=== PATIENT | male | born 1955 | race Caucasian/White ===

== ENCOUNTER 2016-06-12 15:54 | Observation (INO) | payer MEDICARE ==
[2016-06-12] VITALS (165 sets, daily range): BP systolic 130; BP diastolic 67–72; PULSE 86–89; TEMP 97.1–98.3; O2SAT 74–100
[~2016-06-12] VITALS: Ht 177.8 cm; Wt 101.1 kg
[~2016-06-12 15:54] MED LIST: AMOXICILLIN 8751 TAB PO; ASPIRIN E.C. 8181 MG PO; CLEOCIN HCL300 MG PO; COGENTIN 1MG1 MG/TAB PO; COREG 3.123.125 MG/T PO; DEBROX OT; DILANTIN 100MG100 MG PO; DILANTIN KAPSEA30 MG PO; FLOMAX 0.40.4 MG/CAP PO; HALDOL 1MG T1 MG/TAB PO; HALDOL 2MG T2 MG/TAB PO; KENALOG-1010 MG/ML TP; LAMICTAL 100MG100 MG PO; LAMICTAL 25MG T25 MG PO; LAMICTAL200 MG PO; LANOXIN 0.120.125 MG PO; LANOXIN 0.25M0.25 MG PO; LASIX 20MG TABL20 MG PO; LIPITOR20 MG PO; LOTRIMIN1% TP; MULTI VITAMINS1 TAB PO; PHENOBARBITAL100 M1 PO; PHENOBARBITAL32.4 MG PO; PLAVIX 75MG TAB75 MG PO; PROAIR HFA0.09 MG/AC IH; TRIAMCINOLONE A15 GM TP; TYLENOL 325MG325 MG PO; TYLENOL W/COD1 UDTAB PO; ZESTRIL 10MG10 MG PO; ZESTRIL2.5 MG PO; ZOLOFT 100MG100 MG PO; ZYPREXA ZYD10 MG/TAB PO; ZYPREXA10 MG PO
[2016-06-12 16:12] LABS: HEMATOCRIT 43.5 % (42.0-52.0); HEMOGLOBIN 14.8 g/dl (13.5-18.0); MEAN CELL VOLUME 91 fl (80.0-100.0); MEAN CORPUSCULAR HEMOGLOBIN 31 pg (27.0-31.0); MEAN CORPUSCULAR HGB CONC 34 g/dl (33.0-37.0); MEAN PLATELET VOLUME 9.4 fl (7.4-10.4); PLATELET COUNT 357 K/mm3 (130-400); RED BLOOD COUNT 4.78 M/mm3 (4.20-5.60); REDCELL DISTRIBUTION WIDTH-CV 13.9 % (11.5-14.5); WHITE BLOOD COUNT 19.3 K/mm3 (4.8-10.8)
[2016-06-12 16:21] LABS: ADD PATHOLOGY DIFF REVIEW NO
[2016-06-12 16:27] LABS: ADJUSTED CALCIUM 9.4 mg/dL (8.4-10.2); ALBUMIN 4.9 gm/dL (3.5-5.0); BILIRUBIN,TOTAL 0.5 mg/dL (0.0-1.0); CALCIUM 10.1 mg/dL (8.4-10.2); CREATININE, serum 0.72 mg/dL (0.66-1.25); POTASSIUM 3.5 mmol/L (3.4-5.0); TOTAL PROTEIN 7.6 gm/dL (6.4-8.2)
[2016-06-12 16:43] LABS: PROLACTIN 106.5 ng/mL (3.7-17.9)
[2016-06-12] MEDS ORDERED: COGENTIN 1MG1 MG/TAB PO (17:18)
[2016-06-12] MEDS ORDERED: PLAVIX 75MG TAB75 MG PO (17:21)
[2016-06-12] MEDS ORDERED: LIPITOR20 MG PO (17:21)
[2016-06-12] MEDS ORDERED: COREG 3.123.125 MG/T PO (17:21)
[2016-06-12] MEDS ORDERED: AMOXICILLIN 8751 TAB PO (17:21)
[2016-06-12] MEDS ORDERED: ZESTRIL2.5 MG PO (17:22)
[2016-06-12] MEDS ORDERED: LAMICTAL 25MG T25 MG PO (17:22)
[2016-06-12] MEDS ORDERED: DILANTIN 100MG100 MG PO (17:22)
[2016-06-12] MEDS ORDERED: DILANTIN KAPSEA30 MG PO (17:32)
[2016-06-12 18:40] LABS: BAND 5 % (0-10); NEUTROPHILS 81 % (42.0-75.2); TOTAL CELLS COUNTED 100
[2016-06-12] MEDS ORDERED: LASIX 20MG TABL20 MG PO (19:35)
[2016-06-12 21:27] LABS: PH 7 (5-8); URINE APPEARANCE Clear; URINE BILIRUBIN Negative (NEGATIVE); URINE BLOOD Negative (NEGATIVE); URINE COLOR Yellow; URINE GLUCOSE Negative (NEGATIVE); URINE KETONE Negative (NEGATIVE); URINE UROBILINOGEN Negative (NEGATIVE)
[2016-06-13] VITALS (369 sets, daily range): BP systolic 102–107; BP diastolic 59–72; PULSE 76–81; TEMP 98.2–99.2; O2SAT 77–96
[2016-06-13 05:59] LABS: BASO # 0.1 (0.0-0.2); BASO % 0.8 % (0.0-2.0); EOS # 0.1 (0.0-0.7); EOS % 0.4 % (0-4.0); GRAN # 9.3 (1.4-6.5); GRAN % 77.2 % (42.2-75.2); HEMATOCRIT 39.7 % (42.0-52.0); HEMOGLOBIN 13.6 g/dl (13.5-18.0); LYMPH # 1.6 (1.2-3.4); LYMPH % 13.4 % (20.0-51.0); MEAN CELL VOLUME 90 fl (80.0-100.0); MEAN CORPUSCULAR HEMOGLOBIN 31 pg (27.0-31.0); MEAN CORPUSCULAR HGB CONC 34 g/dl (33.0-37.0); MEAN PLATELET VOLUME 9.6 fl (7.4-10.4); MONO # 0.9 (0.1-0.6); MONO % 7.4 % (1.7-9.3); PLATELET COUNT 286 K/mm3 (130-400); REDCELL DISTRIBUTION WIDTH-CV 14.3 % (11.5-14.5)
[2016-06-13 06:22] LABS: MAGNESIUM 1.9 mg/dL (1.6-2.3)
== END 2016-06-13 10:30 | disposition home or self-care (01) ==
LOC: COL.ER 15:54 → ICU 17:43
PROVIDERS: Emergency Medicine; Nurse Practitioner Family; Psychiatry & Neurology Neurology
DX: R56.9 Unspecified convulsions (principal); I10 Essential (primary) hypertension; I42.9 Cardiomyopathy, unspecified; F70 Mild intellectual disabilities
CPT/HCPCS: G0378; J2060; J7030; Q2009; Q9967

== ENCOUNTER 2016-06-14 17:53 | Emergency (ER) | payer MEDICARE ==
[~2016-06-14] VITALS: Ht 177.8 cm; Wt 90.9 kg
[2016-06-14 17:55] VITALS: BP 137/68
[2016-06-14 21:46] VITALS: PULSE 96
== END 2016-06-14 21:46 | disposition home or self-care (01) ==
LOC: COL.ER 17:53
DX: R42 Dizziness and giddiness (principal); M25.562 Pain in left knee; M25.561 Pain in right knee; I10 Essential (primary) hypertension; Z87.891 Personal history of nicotine dependence

== ENCOUNTER 2016-09-04 15:12 | Emergency (ER) | payer MEDICARE ==
[~2016-09-04] VITALS: Ht 182.9 cm; Wt 100.0 kg
[2016-09-04 15:13] VITALS: BP 146/84; TEMP 97.8
[2016-09-04 15:49] LABS: BASO # 0.1 (0.0-0.2); EOS % 0.2 % (0-4.0); GRAN # 9.2 (1.4-6.5); GRAN % 80.4 % (42.2-75.2); HEMATOCRIT 43.8 % (42.0-52.0); HEMOGLOBIN 15.5 g/dl (13.5-18.0); LYMPH # 1.2 (1.2-3.4); LYMPH % 10.8 % (20.0-51.0); MEAN CELL VOLUME 87 fl (80.0-100.0); MEAN CORPUSCULAR HEMOGLOBIN 31 pg (27.0-31.0); MEAN CORPUSCULAR HGB CONC 35 g/dl (33.0-37.0); MEAN PLATELET VOLUME 9.3 fl (7.4-10.4); MONO # 0.8 (0.1-0.6); MONO % 7.1 % (1.7-9.3); PLATELET COUNT 294 K/mm3 (130-400); RED BLOOD COUNT 5.02 M/mm3 (4.20-5.60); REDCELL DISTRIBUTION WIDTH-CV 12.7 % (11.5-14.5); WHITE BLOOD COUNT 11.4 K/mm3 (4.8-10.8)
[2016-09-04 16:04] LABS: ADJUSTED CALCIUM 9.8 mg/dL (8.4-10.2); ALANINE AMINOTRANSFERASE 31 U/L (21-72); ALBUMIN 4.6 gm/dL (3.5-5.0); ALKALINE PHOSPHATASE 103 U/L (50-136); ANION GAP 13 mmol/L (7-16); BILIRUBIN,TOTAL 0.6 mg/dL (0.0-1.0); BLOOD UREA NITROGEN 16 mg/dL (9-20); CALCIUM 10.3 mg/dL (8.4-10.2); CARBON DIOXIDE 30 mmol/L (22-30); CHLORIDE 98 mmol/L (98-107); CREATININE, serum 0.67 mg/dL (0.66-1.25); GLUCOSE 110 mg/dL (74-106); POTASSIUM 3.9 mmol/L (3.4-5.0); SODIUM 141 mmol/L (137-145); TOTAL PROTEIN 7.1 gm/dL (6.4-8.2)
[2016-09-04 16:20] LABS: PROLACTIN 13.2 ng/mL (3.7-17.9)
[2016-09-04 17:30] VITALS: PULSE 84
== END 2016-09-04 17:31 | disposition home or self-care (01) ==
LOC: COL.ER 15:12
PROVIDERS: Emergency Medicine
DX: G40.509 Epileptic seizures related to external causes, not intractable, without status epilepticus (principal); G40.909 Epilepsy, unspecified, not intractable, without status epilepticus; T42.0X6A Underdosing of hydantoin derivatives, initial encounter; Z91.128 Patient's intentional underdosing of medication regimen for other reason; I10 Essential (primary) hypertension
CPT/HCPCS: J2060; J7030; Q2009

== ENCOUNTER 2016-09-17 18:00 | Emergency (ER) | payer MEDICARE ==
[~2016-09-17] VITALS: Ht 177.8 cm; Wt 127.3 kg
[2016-09-17 18:11] VITALS: TEMP 98.6
[2016-09-17 19:15] LABS: BASO # 0.1 (0.0-0.2); BASO % 0.6 % (0.0-2.0); EOS % 0.1 % (0-4.0); GRAN # 10.1 (1.4-6.5); GRAN % 81.5 % (42.2-75.2); HEMATOCRIT 43.5 % (42.0-52.0); HEMOGLOBIN 15.3 g/dl (13.5-18.0); LYMPH # 1.3 (1.2-3.4); LYMPH % 10.3 % (20.0-51.0); MEAN CELL VOLUME 87 fl (80.0-100.0); MEAN CORPUSCULAR HEMOGLOBIN 31 pg (27.0-31.0); MEAN CORPUSCULAR HGB CONC 35 g/dl (33.0-37.0); MEAN PLATELET VOLUME 9.1 fl (7.4-10.4); MONO # 0.9 (0.1-0.6); PLATELET COUNT 308 K/mm3 (130-400); RED BLOOD COUNT 4.99 M/mm3 (4.20-5.60); REDCELL DISTRIBUTION WIDTH-CV 12.9 % (11.5-14.5); WHITE BLOOD COUNT 12.4 K/mm3 (4.8-10.8)
[2016-09-17] MEDS ORDERED: PRINIVIL2.5 MG PO (19:30)
[2016-09-17] MEDS ORDERED: ZOLOFT 100MG100 MG PO (19:31)
[2016-09-17] MEDS ORDERED: COREG 3.123.125 MG/T PO ×2 (19:31→19:33)
[2016-09-17] MEDS ORDERED: PLAVIX 75MG TAB75 MG PO (19:31)
[2016-09-17] MEDS ORDERED: LASIX 20MG TABL20 MG PO (19:34)
[2016-09-17] MEDS ORDERED: LIPITOR20 MG PO (19:34)
[2016-09-17] MEDS ORDERED: LAMICTAL200 MG PO ×2 (19:34→19:35)
[2016-09-17] MEDS ORDERED: DILANTIN KAPSEA30 MG PO (19:35)
[2016-09-17] MEDS ORDERED: COGENTIN 1MG1 MG/TAB PO (19:36)
[2016-09-17] MEDS ORDERED: LAMICTAL 100MG100 MG PO ×2 (19:37)
[2016-09-17] MEDS ORDERED: ASPIRIN E.C. 8181 MG PO (19:37)
[2016-09-17] MEDS ORDERED: HALDOL 2MG T2 MG/TAB PO (19:38)
[2016-09-17] MEDS ORDERED: PHENOBARBITAL32.4 MG PO ×2 (19:38)
[2016-09-17] MEDS ORDERED: FLOMAX 0.40.4 MG/CAP PO (19:39)
[2016-09-17] MEDS ORDERED: DILANTIN 100MG100 MG PO (19:39)
[2016-09-17 19:40] LABS: ADJUSTED CALCIUM 9.8 mg/dL (8.4-10.2); ALBUMIN 4.7 gm/dL (3.5-5.0); BILIRUBIN,TOTAL 0.7 mg/dL (0.0-1.0); CALCIUM 10.4 mg/dL (8.4-10.2); CREATININE, serum 0.69 mg/dL (0.66-1.25); PHOSPHOROUS 3.6 mg/dL (2.5-4.5); POTASSIUM 3.9 mmol/L (3.4-5.0); TOTAL PROTEIN 7.4 gm/dL (6.4-8.2)
[2016-09-17 19:57] LABS: PROLACTIN 11.3 ng/mL (3.7-17.9)
[2016-09-17 22:24] VITALS: BP 157/84; PULSE 91
== END 2016-09-17 22:24 | disposition home or self-care (01) ==
LOC: COL.ER 18:00
PROVIDERS: Emergency Medicine
DX: Z02.89 Encounter for other administrative examinations (principal)

== ENCOUNTER 2016-09-19 01:09 | Emergency (ER) | payer MEDICARE ==
[~2016-09-19] VITALS: Ht 160 cm; Wt 79.5 kg
[~2016-09-19 01:09] MED LIST changes: +PRINIVIL2.5 MG PO
[2016-09-19 01:14] VITALS: TEMP 99.5
[2016-09-19 01:37] LABS: HEMATOCRIT 43.2 % (42.0-52.0); HEMOGLOBIN 15.1 g/dl (13.5-18.0); MEAN CELL VOLUME 89 fl (80.0-100.0); MEAN CORPUSCULAR HEMOGLOBIN 31 pg (27.0-31.0); MEAN CORPUSCULAR HGB CONC 35 g/dl (33.0-37.0); MEAN PLATELET VOLUME 9.1 fl (7.4-10.4); PLATELET COUNT 357 K/mm3 (130-400); RED BLOOD COUNT 4.87 M/mm3 (4.20-5.60); REDCELL DISTRIBUTION WIDTH-CV 13.2 % (11.5-14.5); WHITE BLOOD COUNT 16.8 K/mm3 (4.8-10.8)
[2016-09-19 01:39] LABS: ADD PATHOLOGY DIFF REVIEW NO
[2016-09-19 01:42] LABS: PH 5 (5-8); SQUAMOUS EPITHELIAL None Seen /hpf; URINE APPEARANCE Clear; URINE BACTERIA None Seen /hpf; URINE BILIRUBIN Negative (NEGATIVE); URINE BLOOD 1+ (NEGATIVE); URINE COLOR Yellow; URINE GLUCOSE Negative (NEGATIVE); URINE KETONE Negative (NEGATIVE); URINE UROBILINOGEN Negative (NEGATIVE); URINE WBC 0-2 /hpf
[2016-09-19 01:45] LABS: NEUTROPHILS 82 % (42.0-75.2); PLATELET ESTIMATE NORMAL (NORMAL); TOTAL CELLS COUNTED 100
[2016-09-19 01:50] LABS: ADJUSTED CALCIUM 9.2 mg/dL (8.4-10.2); ALBUMIN 5.1 gm/dL (3.5-5.0); BILIRUBIN,TOTAL 0.7 mg/dL (0.0-1.0); CALCIUM 10.1 mg/dL (8.4-10.2); CREATININE, serum 0.93 mg/dL (0.66-1.25); POTASSIUM 4.3 mmol/L (3.4-5.0); TOTAL PROTEIN 7.9 gm/dL (6.4-8.2)
[2016-09-19] MEDS ORDERED: ZITHROMAX Z PA250 MG PO (02:22)
[2016-09-19 02:49] VITALS: BP 105/69; PULSE 88
[2016-09-19] MEDS ORDERED: COREG 3.123.125 MG/T PO (16:38)
[2016-09-19] MEDS ORDERED: DILANTIN 100MG100 MG PO (16:46)
[2016-09-19] MEDS ORDERED: LAMICTAL 100MG100 MG PO (16:47)
[2016-09-19] MEDS ORDERED: PHENOBARBITAL100 M1 PO (16:47)
== END 2016-09-19 03:07 | disposition home or self-care (01) ==
LOC: COL.ER 01:09
PROVIDERS: Family Medicine
DX: Z02.89 Encounter for other administrative examinations (principal)

== ENCOUNTER 2016-09-19 06:20 | Inpatient (IN) | payer MEDICARE ==
[~2016-09-19] VITALS: Ht 172.7 cm; Wt 111.2 kg
[~2016-09-19 06:20] MED LIST changes: +ZITHROMAX Z PA250 MG PO
[2016-09-19 08:46] LABS: BASO # 0.1 (0.0-0.2); BASO % 0.8 % (0.0-2.0); EOS % 0.3 % (0-4.0); GRAN # 12.8 (1.4-6.5); HEMOGLOBIN 15.3 g/dl (13.5-18.0); LYMPH # 1.5 (1.2-3.4); LYMPH % 9.5 % (20.0-51.0); MEAN CELL VOLUME 88 fl (80.0-100.0); MEAN CORPUSCULAR HEMOGLOBIN 31 pg (27.0-31.0); MEAN CORPUSCULAR HGB CONC 36 g/dl (33.0-37.0); MEAN PLATELET VOLUME 9.2 fl (7.4-10.4); MONO # 1.4 (0.1-0.6); PLATELET COUNT 348 K/mm3 (130-400); REDCELL DISTRIBUTION WIDTH-CV 13.2 % (11.5-14.5)
[2016-09-19 09:11] LABS: ADJUSTED CALCIUM 8.9 mg/dL (8.4-10.2); ALANINE AMINOTRANSFERASE 46 U/L (21-72); ALKALINE PHOSPHATASE 126 U/L (50-136); ANION GAP 13 mmol/L (7-16); BILIRUBIN,TOTAL 0.8 mg/dL (0.0-1.0); BLOOD UREA NITROGEN 21 mg/dL (9-20); CALCIUM 9.7 mg/dL (8.4-10.2); CARBON DIOXIDE 25 mmol/L (22-30); CHLORIDE 96 mmol/L (98-107); CREATININE, serum 1.03 mg/dL (0.66-1.25); GLUCOSE 108 mg/dL (74-106); POTASSIUM 3.9 mmol/L (3.4-5.0); SODIUM 133 mmol/L (137-145); TOTAL PROTEIN 7.7 gm/dL (6.4-8.2)
[2016-09-19 09:15] LABS: ACETAMINOPHEN < 10 ug/mL (10-30); SALICYLATE < 1.0 mg/dL
[2016-09-19 09:16] LABS: PH 5 (5-8); SQUAMOUS EPITHELIAL None Seen /hpf; URINE APPEARANCE Clear; URINE BACTERIA None Seen /hpf; URINE BILIRUBIN Negative (NEGATIVE); URINE BLOOD 1+ (NEGATIVE); URINE COLOR Yellow; URINE GLUCOSE Negative (NEGATIVE); URINE KETONE Negative (NEGATIVE); URINE RBC 0-2 /hpf; URINE UROBILINOGEN Negative (NEGATIVE); URINE WBC 0-2 /hpf
[2016-09-19 10:26] LABS: AMPHETAMINE URINE NEGATIVE; BARBITURATES URINE POSITIVE; BENZODIAZEPINES URINE NEGATIVE; BUPRENORPHINE URINE NEGATIVE; METHADONE URINE NEGATIVE; OPIATES URINE NEGATIVE; OXYCODONE URINE NEGATIVE; PHENCYCLIDINE URINE NEGATIVE; PROPOXYPHENE URINE NEGATIVE; THC CANNABINOIDS URINE NEGATIVE
[2016-09-19 10:56] LABS: THYROXINE (T4)-TOTAL 8.3 ug/dL (5.5-11.0)
[2016-09-19 15:57] VITALS: BP 116/80; PULSE 84; TEMP 97.8
[2016-09-19 15:59] VITALS: BP 116/80; PULSE 86; TEMP 97.8
[2016-09-19] MEDS ORDERED: COREG 3.123.125 MG/T PO (16:38)
[2016-09-19] MEDS ORDERED: DILANTIN 100MG100 MG PO (16:46)
[2016-09-19] MEDS ORDERED: LAMICTAL 100MG100 MG PO (16:47)
[2016-09-19] MEDS ORDERED: PHENOBARBITAL100 M1 PO (16:47)
[2016-09-19 19:30] VITALS: BP 113/64; PULSE 76; TEMP 97.8
[2016-09-19 23:49] VITALS: BP 112/79; PULSE 90; TEMP 98.2
[2016-09-20 03:45] VITALS: BP 109/61; PULSE 73; TEMP 98.1
[2016-09-20 07:50] VITALS: BP 117/68; PULSE 67; TEMP 98.1
[2016-09-20 11:59] VITALS: BP 116/70; PULSE 74; TEMP 98.7
[2016-09-20 15:56] VITALS: BP 114/66; PULSE 80; TEMP 98.2
[2016-09-20 19:42] VITALS: BP 131/74; PULSE 17; PULSE 77; TEMP 98.2
[2016-09-20 23:14] VITALS: BP 148/84; PULSE 66; TEMP 98.3
[2016-09-21 02:58] VITALS: BP 107/46; PULSE 72; TEMP 98.5
[2016-09-21 06:40] LABS: BASO # 0.1 (0.0-0.2); BASO % 0.9 % (0.0-2.0); EOS # 0.1 (0.0-0.7); EOS % 1.5 % (0-4.0); GRAN # 6.1 (1.4-6.5); GRAN % 76.1 % (42.2-75.2); HEMATOCRIT 40.5 % (42.0-52.0); HEMOGLOBIN 13.8 g/dl (13.5-18.0); LYMPH % 12.6 % (20.0-51.0); MEAN CELL VOLUME 91 fl (80.0-100.0); MEAN CORPUSCULAR HEMOGLOBIN 31 pg (27.0-31.0); MEAN CORPUSCULAR HGB CONC 34 g/dl (33.0-37.0); MEAN PLATELET VOLUME 9.1 fl (7.4-10.4); MONO # 0.7 (0.1-0.6); MONO % 8.4 % (1.7-9.3); PLATELET COUNT 268 K/mm3 (130-400); RED BLOOD COUNT 4.46 M/mm3 (4.20-5.60); REDCELL DISTRIBUTION WIDTH-CV 13.1 % (11.5-14.5)
[2016-09-21 07:06] LABS: CALCIUM 8.7 mg/dL (8.4-10.2); CREATININE, serum 0.82 mg/dL (0.66-1.25); POTASSIUM 3.8 mmol/L (3.4-5.0)
[2016-09-21 07:11] VITALS: BP 111/58; PULSE 77; TEMP 97.6
[2016-09-21] MEDS ORDERED: ZYPREXA 5MG5 MG PO (10:17)
[2016-09-21 11:51] VITALS: BP 117/67; PULSE 88; TEMP 97.6
== END 2016-09-21 14:19 | disposition home health service (06) | DRG 202 ==
LOC: COL.ER 06:20 → MEDICAL 10:38
PROVIDERS: Emergency Medicine; Family Medicine
DX: J20.9 Acute bronchitis, unspecified (principal); F20.0 Paranoid schizophrenia; I42.9 Cardiomyopathy, unspecified; F31.9 Bipolar disorder, unspecified; I10 Essential (primary) hypertension; F70 Mild intellectual disabilities; Z91.14 Patient's other noncompliance with medication regimen; R56.9 Unspecified convulsions
CPT/HCPCS: 90791-AI; 99222-AI; 99232-AI; 99239; J0696; J1630; J1650; J7030

== ENCOUNTER 2016-10-30 13:57 | Emergency (ER) | payer MEDICARE ==
[~2016-10-30] VITALS: Ht 172.7 cm; Wt 95.5 kg
[~2016-10-30 13:57] MED LIST changes: +ZYPREXA 5MG5 MG PO
[2016-10-30 14:02] VITALS: TEMP 99.7
[2016-10-30 14:49] LABS: ADJUSTED CALCIUM 9.1 mg/dL (8.4-10.2); ALANINE AMINOTRANSFERASE 46 U/L (21-72); ALBUMIN 4.7 gm/dL (3.5-5.0); ALKALINE PHOSPHATASE 98 U/L (50-136); ANION GAP 12 mmol/L (7-16); BILIRUBIN,TOTAL 0.9 mg/dL (0.0-1.0); BLOOD UREA NITROGEN 12 mg/dL (9-20); CALCIUM 9.7 mg/dL (8.4-10.2); CARBON DIOXIDE 28 mmol/L (22-30); CHLORIDE 97 mmol/L (98-107); CREATININE, serum 0.69 mg/dL (0.66-1.25); GLUCOSE 118 mg/dL (74-106); POTASSIUM 3.6 mmol/L (3.4-5.0); SODIUM 137 mmol/L (137-145); TOTAL PROTEIN 7.4 gm/dL (6.4-8.2)
[2016-10-30 14:57] LABS: HEMATOCRIT 39.2 % (42.0-52.0); HEMOGLOBIN 13.6 g/dl (13.5-18.0); MEAN CELL VOLUME 89 fl (80.0-100.0); MEAN CORPUSCULAR HEMOGLOBIN 31 pg (27.0-31.0); MEAN CORPUSCULAR HGB CONC 35 g/dl (33.0-37.0); MEAN PLATELET VOLUME 9.6 fl (7.4-10.4); PLATELET COUNT 303 K/mm3 (130-400); RED BLOOD COUNT 4.41 M/mm3 (4.20-5.60); REDCELL DISTRIBUTION WIDTH-CV 13.2 % (11.5-14.5)
[2016-10-30 15:00] LABS: WHITE BLOOD COUNT 20.8 K/mm3 (4.8-10.8)
[2016-10-30 15:01] LABS: ADD PATHOLOGY DIFF REVIEW NO
[2016-10-30 15:05] LABS: PROLACTIN 12.6 ng/mL (3.7-17.9)
[2016-10-30 15:41] LABS: BAND 1 % (0-10); NEUTROPHILS 92 % (42.0-75.2); PLATELET ESTIMATE NORMAL (NORMAL); TOTAL CELLS COUNTED 100
[2016-10-30 15:53] LABS: PH 5 (5-8); SQUAMOUS EPITHELIAL None Seen /hpf; URINE APPEARANCE Hazy; URINE BACTERIA Rare /hpf; URINE BILIRUBIN Negative (NEGATIVE); URINE BLOOD 2+ (NEGATIVE); URINE COLOR Amber; URINE GLUCOSE Negative (NEGATIVE); URINE KETONE Negative (NEGATIVE); URINE RBC 0-2 /hpf; URINE UROBILINOGEN Negative (NEGATIVE)
[2016-10-30] MEDS ORDERED: LEVAQUIN 5500 MG/TA1 PO (15:59)
[2016-10-30] MEDS ORDERED: OMNICEF 300MG300 MG PO (16:12)
[2016-10-30 16:22] VITALS: BP 130/60; PULSE 88
== END 2016-10-30 16:23 | disposition home or self-care (01) ==
LOC: COL.ER 13:57
PROVIDERS: Emergency Medicine
DX: J18.9 Pneumonia, unspecified organism (principal); G40.909 Epilepsy, unspecified, not intractable, without status epilepticus; I10 Essential (primary) hypertension; F20.9 Schizophrenia, unspecified; I51.9 Heart disease, unspecified; Z79.02 Long term (current) use of antithrombotics/antiplatelets
CPT/HCPCS: J0696

== ENCOUNTER 2016-11-06 12:22 | Observation (INO) | payer MEDICARE ==
[~2016-11-06] VITALS: Ht 170.2 cm; Wt 108.0 kg
[~2016-11-06 12:22] MED LIST changes: +LEVAQUIN 5500 MG/TA1 PO; +OMNICEF 300MG300 MG PO
[2016-11-06 14:17] LABS: BASO # 0.1 (0.0-0.2); BASO % 0.9 % (0.0-2.0); EOS % 0.1 % (0-4.0); GRAN % 81.6 % (42.2-75.2); HEMATOCRIT 41.6 % (42.0-52.0); HEMOGLOBIN 14.2 g/dl (13.5-18.0); LYMPH # 1.1 (1.2-3.4); MEAN CELL VOLUME 90 fl (80.0-100.0); MEAN CORPUSCULAR HEMOGLOBIN 31 pg (27.0-31.0); MEAN CORPUSCULAR HGB CONC 34 g/dl (33.0-37.0); MEAN PLATELET VOLUME 8.9 fl (7.4-10.4); MONO # 0.7 (0.1-0.6); MONO % 6.6 % (1.7-9.3); PLATELET COUNT 432 K/mm3 (130-400); RED BLOOD COUNT 4.62 M/mm3 (4.20-5.60); REDCELL DISTRIBUTION WIDTH-CV 13.1 % (11.5-14.5); WHITE BLOOD COUNT 11.1 K/mm3 (4.8-10.8)
[2016-11-06 14:39] LABS: ADJUSTED CALCIUM 9.4 mg/dL (8.4-10.2); ALBUMIN 4.4 gm/dL (3.5-5.0); BILIRUBIN,TOTAL 0.5 mg/dL (0.0-1.0); C-REACTIVE PROTEIN 1.2 mg/dL (0.0-0.9); CALCIUM 9.7 mg/dL (8.4-10.2); CREATININE, serum 0.73 mg/dL (0.66-1.25); POTASSIUM 3.4 mmol/L (3.4-5.0); TOTAL PROTEIN 7.2 gm/dL (6.4-8.2)
[2016-11-06 15:07] LABS: ALLEN TEST YES; ALLENS TEST RESULT PASS; ARTERIAL BLD GAS O2 SATURATION 95.3 % (92-100); ARTERIAL BLD GAS TCO2 CT 29.3; ARTERIAL BLOOD GAS BASE EXCESS 4.2 (-2-2); ARTERIAL BLOOD GAS HCO3 28.1 meq/L (22-26); ARTERIAL BLOOD GAS PO2 79.6 mmHg (80-100); ARTERIAL BLOOD GAS pH 7.47 (7.35-7.45); ATS? YES; OXYHEMOGLOBIN 94.3 %
[2016-11-06 16:30] VITALS: BP 151/82; PULSE 82; TEMP 98.5
[2016-11-06 16:36] VITALS: BP 151/82; PULSE 82; TEMP 98.7
[2016-11-06 18:58] LABS: PH 7 (5-8); SQUAMOUS EPITHELIAL None Seen /hpf; URINE APPEARANCE Hazy; URINE BACTERIA None Seen /hpf; URINE BILIRUBIN Negative (NEGATIVE); URINE BLOOD Negative (NEGATIVE); URINE COLOR Yellow; URINE GLUCOSE Negative (NEGATIVE); URINE KETONE 1+ (NEGATIVE); URINE RBC 0-2 /hpf; URINE UROBILINOGEN Negative (NEGATIVE); URINE WBC 0-2 /hpf
[2016-11-07 02:36] VITALS: BP 151/74; BP 154/66; PULSE 73; PULSE 83; TEMP 98.3
[2016-11-07 06:01] VITALS: BP 147/60; PULSE 77; TEMP 98.4
[2016-11-07 09:37] VITALS: BP 132/73; PULSE 75; TEMP 98.2
[2016-11-07] MEDS ORDERED: ASPIRIN 81M81 MG/TA2 PO (11:51)
[2016-11-07] MEDS ORDERED: COGENTIN 1MG1 MG/TAB PO (11:51)
[2016-11-07] MEDS ORDERED: COREG 3.123.125 MG/T PO (11:52)
[2016-11-07] MEDS ORDERED: DILANTIN KAPSEA30 MG PO (11:53)
[2016-11-07] MEDS ORDERED: DILANTIN 100MG100 MG PO (11:53)
[2016-11-07] MEDS ORDERED: HALDOL 2MG T2 MG/TAB PO (11:54)
[2016-11-07] MEDS ORDERED: LASIX 20MG TABL20 MG PO (11:55)
[2016-11-07] MEDS ORDERED: LAMICTAL 100MG100 MG PO (11:55)
[2016-11-07] MEDS ORDERED: LIPITOR20 MG PO (11:56)
[2016-11-07] MEDS ORDERED: FLOMAX 0.40.4 MG/CAP PO (11:57)
[2016-11-07] MEDS ORDERED: PLAVIX 75MG TAB75 MG PO (11:57)
[2016-11-07] MEDS ORDERED: PHENOBARBITAL16.2 MG PO (11:57)
[2016-11-07] MEDS ORDERED: ZESTRIL2.5 MG PO (11:58)
[2016-11-07] MEDS ORDERED: ZOLOFT 100MG100 MG PO (11:58)
[2016-11-07 13:55] VITALS: BP 143/89; PULSE 77; TEMP 98.5
[2016-11-07 18:10] VITALS: BP 142/72; PULSE 78
[2016-11-07 21:38] VITALS: BP 142/85; PULSE 73; TEMP 98.5
[2016-11-08 02:19] VITALS: BP 131/64; PULSE 64; TEMP 97.8
[2016-11-08 05:52] VITALS: BP 138/64; PULSE 68; TEMP 97.6
[2016-11-08 10:37] VITALS: BP 122/71; PULSE 78; TEMP 98.8
[2016-11-08] MEDS ORDERED: HALDOL 5MG T5 MG/TAB PO (13:10)
== END 2016-11-08 14:20 | disposition home health service (06) ==
LOC: COL.ER 12:22 → MEDICAL 15:15 → SURG 17:27
PROVIDERS: Family Medicine; Internal Medicine
DX: R41.82 Altered mental status, unspecified (principal); I10 Essential (primary) hypertension; F31.9 Bipolar disorder, unspecified; F70 Mild intellectual disabilities; F20.9 Schizophrenia, unspecified; I42.9 Cardiomyopathy, unspecified; Z79.01 Long term (current) use of anticoagulants; Z91.19 Patient's noncompliance with other medical treatment and regimen; Z86.69 Personal history of other diseases of the nervous system and sense organs
CPT/HCPCS: 90791-AI; G0378; G8978-GP; G8979-GP; G8987-GO; G8988-GO; G9159-GN; G9160-GN; J1650; J2060; J7030

== ENCOUNTER 2016-11-23 11:47 | Emergency (ER) | payer MEDICARE ==
[~2016-11-23] VITALS: Ht 167.6 cm; Wt 109.1 kg
[~2016-11-23 11:47] MED LIST changes: +ASPIRIN 81M81 MG/TA2 PO; +HALDOL 5MG T5 MG/TAB PO; +PHENOBARBITAL16.2 MG PO
[2016-11-23 11:49] VITALS: BP 158/70; PULSE 71; TEMP 98.1
== END 2016-11-23 14:30 | disposition home or self-care (01) ==
LOC: COL.ER 11:47
DX: S09.90XA Unspecified injury of head, initial encounter (principal); S00.12XA Contusion of left eyelid and periocular area, initial encounter; W01.198A Fall on same level from slipping, tripping and stumbling with subsequent striking against other object, initial encounter; F20.9 Schizophrenia, unspecified; J44.9 Chronic obstructive pulmonary disease, unspecified; R56.9 Unspecified convulsions

== ENCOUNTER 2016-11-29 16:48 | Emergency (ER) | payer MEDICARE ==
[~2016-11-29] VITALS: Ht 167.6 cm; Wt 100.0 kg
[2016-11-29 16:49] VITALS: BP 145/107; TEMP 99.4
[2016-11-29 17:20] LABS: BASO # 0.1 (0.0-0.2); BASO % 0.7 % (0.0-2.0); EOS % 0.2 % (0-4.0); GRAN % 83.3 % (42.2-75.2); HEMATOCRIT 40.8 % (42.0-52.0); HEMOGLOBIN 14.5 g/dl (13.5-18.0); LYMPH # 0.9 (1.2-3.4); LYMPH % 7.6 % (20.0-51.0); MEAN CELL VOLUME 87 fl (80.0-100.0); MEAN CORPUSCULAR HEMOGLOBIN 31 pg (27.0-31.0); MEAN CORPUSCULAR HGB CONC 36 g/dl (33.0-37.0); MEAN PLATELET VOLUME 9.6 fl (7.4-10.4); MONO # 0.9 (0.1-0.6); MONO % 7.8 % (1.7-9.3); PLATELET COUNT 306 K/mm3 (130-400); RED BLOOD COUNT 4.69 M/mm3 (4.20-5.60)
[2016-11-29 17:41] LABS: ADJUSTED CALCIUM 9.3 mg/dL (8.4-10.2); ALANINE AMINOTRANSFERASE 34 U/L (21-72); ALBUMIN 4.9 gm/dL (3.5-5.0); ALKALINE PHOSPHATASE 96 U/L (50-136); ANION GAP 13 mmol/L (7-16); BILIRUBIN,TOTAL 0.7 mg/dL (0.0-1.0); BLOOD UREA NITROGEN 11 mg/dL (9-20); C-REACTIVE PROTEIN 0.7 mg/dL (0.0-0.9); CARBON DIOXIDE 28 mmol/L (22-30); CHLORIDE 98 mmol/L (98-107); CREATININE, serum 0.66 mg/dL (0.66-1.25); GLUCOSE 103 mg/dL (74-106); POTASSIUM 3.4 mmol/L (3.4-5.0); SODIUM 139 mmol/L (137-145); TOTAL PROTEIN 7.3 gm/dL (6.4-8.2)
[2016-11-29 18:02] LABS: PROLACTIN 10.7 ng/mL (3.7-17.9); TROPONIN-I < 0.012 ng/mL (0.000-0.034)
[2016-11-29 18:26] LABS: PH 6 (5-8); SQUAMOUS EPITHELIAL 0-2 /hpf; URINE APPEARANCE Hazy; URINE BACTERIA None Seen /hpf; URINE BILIRUBIN Negative (NEGATIVE); URINE BLOOD Negative (NEGATIVE); URINE COLOR Yellow; URINE GLUCOSE Negative (NEGATIVE); URINE KETONE 1+ (NEGATIVE); URINE RBC 0-2 /hpf; URINE UROBILINOGEN Negative (NEGATIVE)
[2016-11-29 18:40] LABS: ACETAMINOPHEN < 10 ug/mL (10-30); SALICYLATE < 1.0 mg/dL
[2016-11-29 18:54] LABS: AMPHETAMINE URINE NEGATIVE; BARBITURATES URINE POSITIVE; BENZODIAZEPINES URINE NEGATIVE; BUPRENORPHINE URINE NEGATIVE; METHADONE URINE NEGATIVE; OPIATES URINE NEGATIVE; OXYCODONE URINE NEGATIVE; PHENCYCLIDINE URINE NEGATIVE; PROPOXYPHENE URINE NEGATIVE; THC CANNABINOIDS URINE NEGATIVE
[2016-11-29 19:54] VITALS: PULSE 82
== END 2016-11-29 19:55 | disposition home or self-care (01) ==
LOC: COL.ER 16:48
PROVIDERS: Emergency Medicine
DX: R41.82 Altered mental status, unspecified (principal); R41.0 Disorientation, unspecified; G40.909 Epilepsy, unspecified, not intractable, without status epilepticus; T42.0X6A Underdosing of hydantoin derivatives, initial encounter; I10 Essential (primary) hypertension; F20.9 Schizophrenia, unspecified; F31.9 Bipolar disorder, unspecified; S00.12XD Contusion of left eyelid and periocular area, subsequent encounter; W19.XXXD Unspecified fall, subsequent encounter
CPT/HCPCS: J7030; Q2009